=== PATIENT | female | born 1965 | race Caucasian/White ===

== ENCOUNTER 2022-12-02 21:30 | Emergency (ER) | payer OTHER ==
[~2022-12-02] VITALS: Ht 165.1 cm; Wt 68.7 kg
--- NOTE | 2022-12-02 21:30 | NUR ---
PT AMB TO [facility] 2[facility] WITH STEADY GAIT WITH C/O VIZCARRA.
--- NOTE | 2022-12-02 21:33 | NUR ---
AT BEDSIDE FOR EVAL.
[2022-12-02 22:03] LABS: HEMATOCRIT 37.3 % (31.2-41.9); MEAN CORPUSCULAR HEMOGLOBIN 31.9 uug (24.7-32.8); MEAN CORPUSCULAR VOLUME 94.5 fL (75.5-95.3); PLATELET COUNT (AUTO) 244 K/uL (179-408)
[2022-12-02 22:10] LABS: CREATININE 0.8 mg/dL (0.6-1.3); POTASSIUM 3.8 mmol/L (3.5-5.1)
--- NOTE | 2022-12-02 22:40 | NUR ---
PT TO CT VIA RODOLFO. Addendum: 12/03/22 at 0016 by [email or web address] PT TAKEN TO CT VIA W/C.
--- NOTE | 2022-12-02 23:55 | NUR ---
PT A,A AND O X 4 WITH NO C/O VIZCARRA PAIN AND NO S/S OF STROKE OBSERVED. Patient discharged to home in stable condition. Written and verbal after care instructions given BY RELL GROUNDSKEEPER IN [place]. GROUNDSKEEPER # [id number]. Patient verbalizes understanding of instructions. Stressed follow up or return to ER for worsening s/s. PT AMB OUT WITH STEADY GAIT.
[2022-12-03 00:22] VITALS: BP 132/81
== END 2022-12-02 23:55 | disposition home or self-care (01) ==
LOC: ER 21:32
DX: R20.2 Paresthesia of skin (principal); R51.9 Headache, unspecified; E78.5 Hyperlipidemia, unspecified; R07.89 Other chest pain
CPT/HCPCS: 36415; 70450; 85025; 93005; A4663

== ENCOUNTER 2024-01-20 19:43 | Emergency (ER) | payer OTHER ==
[~2024-01-20] VITALS: Ht 170.2 cm; Wt 65.8 kg
[2024-01-20 21:14] LABS: BASOPHILS % (AUTO) 0.6 % (0.0-2.0); EOSINOPHILS # (AUTO) 0.1 K/uL (0.0-0.7); EOSINOPHILS % (AUTO) 2.2 % (0.0-7.0); HEMATOCRIT 36.7 % (31.2-41.9); HEMOGLOBIN 12.1 g/dL (10.9-14.3); LYMPHOCYTES # (AUTO) 1.8 K/uL (0.8-4.8); LYMPHOCYTES % (AUTO) 37.6 % (20.5-51.5); MEAN CORPUSCULAR HEMOGLOBIN 30.8 uug (24.7-32.8); MEAN CORPUSCULAR HGB CONC 33 g/dL (32.3-35.6); MEAN CORPUSCULAR VOLUME 93.5 fL (75.5-95.3); MONOCYTES # (AUTO) 0.6 K/uL (0.1-1.30); MONOCYTES % (AUTO) 13.3 % (0.0-11.0); NEUTROPHILS # (AUTO) 2.2 K/uL (1.8-8.9); NEUTROPHILS % (AUTO) 46.3 % (38.5-71.5); PLATELET COUNT (AUTO) 309 K/uL (179-408); RED BLOOD CELL COUNT(AUTO) 3.92 MIL/uL (3.63-4.92); RED CELL DISTRIBUTION WIDTH 13.3 % (12.3-17.7); WHITE BLOOD COUNT (AUTO) 4.8 K/uL (3.8-11.8)
[2024-01-20 21:16] LABS: DIFFERENTIAL COMMENT 1
[2024-01-20 21:43] LABS: CALCIUM 9.3 mg/dL (8.5-10.1); CREATININE 0.8 mg/dL (0.6-1.3); POTASSIUM 4.7 mmol/L (3.5-5.1)
[2024-01-20 21:49] LABS: ALBUMIN 3.3 g/dL (3.4-5.0); BILIRUBIN,TOTAL 0.2 mg/dL (0.2-1.0); TOTAL PROTEIN, SERUM 7.2 g/dL (6.4-8.2)
[2024-01-20] MEDS ORDERED: LEVO500T90 PO (22:22)
[2024-01-20] MEDS ORDERED: BENZ-13 PO (22:22)
[2024-01-20 22:49] VITALS: BP 138/83; TEMP 98; O2SAT 98
== END 2024-01-20 22:45 | disposition home or self-care (01) ==
LOC: ER 19:44
DX: J40 Bronchitis, not specified as acute or chronic (principal); J32.9 Chronic sinusitis, unspecified; E78.5 Hyperlipidemia, unspecified; Z20.822 Contact with and (suspected) exposure to COVID-19; Z79.899 Other long term (current) drug therapy
CPT/HCPCS: 36415; 71045; 85025; A4606; A4663